=== PATIENT | male | born 1950 | race Caucasian/White ===

== ENCOUNTER 2016-10-09 12:36 | Emergency (ER) | payer BC, MEDICARE ==
[~2016-10-09] VITALS: Ht 177.8 cm; Wt 93.1 kg
[2016-10-09 12:37] VITALS: BP 132/91
[2016-10-09] MEDS ORDERED: VITA250L PO (13:03)
[2016-10-09] MEDS ORDERED: LORA0.5T11 PO (13:03)
[2016-10-09] MEDS ORDERED: OMEP40CA2 PO (13:03)
[2016-10-09] MEDS ORDERED: FENO150C PO (13:03)
[2016-10-09] MEDS ORDERED: ASPI81TA85 PO (13:03)
[2016-10-09] MEDS ORDERED: VENL75TA2 PO (13:03)
--- NOTE | 2016-10-09 14:49 | REP ---
LEFT KNEE SERIES: Five views of the left knee performed. There is no acute fracture or dislocation. There is mild superior patellar spurring and lateral patellar facet spurring. There is a mild to moderate joint effusion. IMPRESSION: Mild degenerative changes. No fracture or dislocation. Joint effusion noted in the suprapatellar bursa. Signed by Dre Moya MD 10/09/2016 05:26 P
[2016-10-09] MEDS ORDERED: NORC1TAB4 PO (14:57)
== END 2016-10-09 15:14 | disposition home or self-care (01) ==
LOC: M ED 12:36
DX: M25.462 Effusion, left knee (principal); V85.4XXA Person injured while boarding or alighting from special construction vehicle, initial encounter; Y92.007 Garden or yard of unspecified non-institutional (private) residence as the place of occurrence of the external cause; K21.9 Gastro-esophageal reflux disease without esophagitis; C88.0 Waldenstrom macroglobulinemia; F17.210 Nicotine dependence, cigarettes, uncomplicated; E78.9 Disorder of lipoprotein metabolism, unspecified; Z79.899 Other long term (current) drug therapy; Z79.82 Long term (current) use of aspirin

== ENCOUNTER → 2019-12-22 | Outpatient (CLI) | payer MEDICARE ==
[~2019-12-22] MED LIST: ASPI81TA86 PO; FENO150C PO; LORA0.5T5 PO; NORC1TAB7 PO; OMEP40CA97 PO; VENL75TA2 PO; VITA250L PO
--- NOTE | 2019-12-22 10:35 | REPVR ---
PROCEDURE INFORMATION: Exam: MR Cervical Spine Without Contrast Exam date and time: 12/22/2019 8:19 AM Age: 69 years old Clinical indication: Neck pain; Additional info: Cervicalgia TECHNIQUE: Imaging protocol: Multiplanar magnetic resonance images of the cervical spine without contrast. COMPARISON: No relevant prior studies available. FINDINGS: Vertebrae: There is 2 mm of grade 1 retrolisthesis of C5 with respect to C6. Normal vertebral body alignment is otherwise preserved. Vertebral body heights are within normal limits. Spinal cord: Normal signal. No cord compression. C2-C3: No significant disc disease. No significant spinal stenosis. C3-C4: There is a shallow disc osteophyte complex asymmetric to the right. There is moderate right and mild left facet hypertrophy. The spinal canal and neural foramina are patent. C4-C5: There is a diffuse disc osteophyte complex asymmetric to the left. There is moderate right and severe left facet hypertrophy. There is severe left neural foraminal narrowing. C5-C6: There is a diffuse disc osteophyte complex/uncovering related to listhesis. There is moderate facet hypertrophy. There is severe bilateral neural foraminal narrowing. There is moderate canal stenosis. C6-C7: There is a shallow disc osteophyte complex. There is moderate facet hypertrophy. There is severe right and moderate left neural foraminal narrowing. C7-T1: No significant disc disease. No significant spinal stenosis. Vertebral arteries: Expected flow voids in the vertebral arteries. Soft tissues: Unremarkable. IMPRESSION: Degenerative disc disease and spondylosis, with multilevel severe neural foraminal narrowing. Electronically signed by: Joycelyn Fuentes On 12/22/2019 10:35:32 AM
== END ==
LOC: M RAD 06:40
DX: M25.78 Osteophyte, vertebrae (principal); M43.12 Spondylolisthesis, cervical region; M48.02 Spinal stenosis, cervical region

== ENCOUNTER 2021-11-19 09:30 | Emergency (ER) | payer MEDICARE ==
[~2021-11-19] VITALS: Ht 177.8 cm; Wt 94.1 kg
[~2021-11-19 09:30] MED LIST changes: +OMEP40CA4 PO; -OMEP40CA97 PO
[2021-11-19] MEDS ORDERED: IBUP80TA (09:39)
[2021-11-19] MEDS ORDERED: DESL1TAB3 (09:39)
[2021-11-19] MEDS ORDERED: NEBI5TAB (09:39)
[2021-11-19] MEDS ORDERED: traMADol 50 MG TAB PO ONE (12:55)
[2021-11-19] MEDS ORDERED: HYDR-3713 PO (14:29)
[2021-11-19 14:51] VITALS: BP 149/77
== END 2021-11-19 14:53 | disposition home or self-care (01) ==
LOC: M ED 09:30
DX: S82.201A Unspecified fracture of shaft of right tibia, initial encounter for closed fracture (principal); W08.XXXA Fall from other furniture, initial encounter; Z79.82 Long term (current) use of aspirin; Z79.899 Other long term (current) drug therapy

== ENCOUNTER → 2021-12-12 | Outpatient (CLI) | payer MEDICARE ==
[~2021-12-12] MED LIST changes: +DESL1TAB3; +HYDR-3713 PO; +IBUP80TA; +NEBI5TAB
== END ==
LOC: M RAD 07:34
PROVIDERS: ATTEND Orthopaedic Surgery Adult Reconstructive Orthopaedic Surgery
DX: S82.101A Unspecified fracture of upper end of right tibia, initial encounter for closed fracture (principal); W18.30XA Fall on same level, unspecified, initial encounter; Y92.009 Unspecified place in unspecified non-institutional (private) residence as the place of occurrence of the external cause